=== PATIENT | male | born 1970 | race Caucasian/White ===

== ENCOUNTER 2016-08-07 05:34 | Inpatient (IN) | payer OTHER ==
[~2016-08-07] VITALS: Ht 172.7 cm; Wt 67.5 kg
--- NOTE | 2016-08-07 08:36 | DIAGNOSTIC IMAGING REPORT ---
PROCEDURE: CT ABD/PELVIS WITH CONTRAST CLINICAL INDICATION: Right lower quadrant pain x 3 weeks. Initial encounter. TECHNIQUE: 125 ml of Isovue 300 were injected intravenously and axial images were obtained of the entire abdomen and pelvis with sagittal and coronal reformations. COMPARISON: None. FINDINGS: ABDOMEN: Wall thickening and mild distention of the entire colon. There is some wall thickening of the proximal jejunum. Varices are present. Normal terminal ileum. Lung base are clear. Heart size is normal. Two calcified gallstones (1 cm). Liver, pancreas, spleen, adrenal glands and kidneys are normal. Mild atherosclerosis of the aorta. PELVIS: Prominent appendix measures 8 mm in diameter, without adjacent inflammatory changes, with tiny amount of fluid adjacent to the tip. Mildly enlarged prostate (4.5 cm). Mild degenerative changes of the spine. IMPRESSION: 1. Moderate wall thickening of the entire colon with mild distention and normal terminal ileum. Consider ulcerative colitis, Crohn's, colitis ( infection), irritable bowel syndrome. 2. Varices 3. Cholelithiasis 4. Prominent appendix without adjacent inflammatory changes but with a small amount of free fluid adjacent to the tip. Findings are equivocal for acute appendicitis. Correlate clinically. Recommend surgical consultation. All CT scans at this facility use dose modulation, iterative reconstruction, and/or weight-based dosing when appropriate to reduce radiation dose to as low as reasonably achievable.
--- NOTE | 2016-08-07 08:40 | ED CLINICAL REPORT ---
Clinical Report - Physicians/Mid Levels [facility] [address] [place] [address] 08/07/2016 5:37 Patient: LEONCIO GRAYSON Arrived- By ambulance. Historian- patient. HISTORY OF PRESENT ILLNESS Chief Complaint: ABDOMINAL PAIN. At its maximum, severity described as moderate. When seen in the E.D., severity described as moderate. It is described as sharp. No radiation. It is described as generalized in location. This started about 3 weeks and is still present. It was gradual in onset and has been constant but is not gone now. The patient has had nausea and vomiting. No loss of appetite. He has had moderate diarrhea. It has been bloody. No additional abdominal pain. No recent travel. Similar symptoms previously: None. Recent medical care: The patient was seen recently in the emergency department (reports going to [facility] in [place]. States that he has been unable to follow up with gastroenterology. Patient reports that he missed his appointment. Patient states that he should've followed up however did not.). REVIEW OF SYSTEMS No constipation, hematemesis, fever or headache. He has had skin rash. All systems otherwise negative, except as recorded above. PAST HISTORY See nurses notes. SOCIAL HISTORY Never smoker. No alcohol use or drug use. No recent travel. Is a local resident. FAMILY HISTORY (No known family history of inflammatory bowel disease). ADDITIONAL NOTES The nursing notes have been reviewed. PHYSICAL EXAM Vital Signs: 08/07/2016 05:38 BP: 106/61. HR: 85. RR: 20. O2 saturation: 99%. Temp: 98.4 F. Pain level now: 7/10. Blood pressure normal. Oxygen saturation normal. Appearance: Alert. Oriented X3. No acute distress. Eyes: Pupils equal, round and reactive to light. Eyes normal inspection. No pale conjunctivae. ENT: Ears normal. Nose normal. Pharynx normal. Neck: Normal inspection. Neck supple. CVS: Normal heart rate and rhythm. Heart sounds normal. Pulses normal. Respiratory: No respiratory distress. Breath sounds normal. Chest nontender. No rales, rhonchi or wheezes. Abdomen: Soft. Mild tenderness diffusely. (hyperactive bowel sounds.). Rectal: Strongly heme-positive stool; blood present in the stool; stools are maroon colored; hemoccult senior quality assurance specialist check passed. (POC test reference range: negative). No blood streaks. Skin: Skin warm and dry. Normal skin color. No rash. Normal skin turgor. Extremities: Extremities exhibit normal ROM. No lower extremity edema. Neuro: Oriented X 3. No motor deficit. No sensory deficit. LABS, X-RAYS, AND EKG Abdominal CT: Pancolitis. Gallstones noted. Equivocal finding on appendix. Study type: abdomen and pelvis. Abdominal CT performed with IV contrast. The study was independently viewed by me and interpreted by the radiologist. The study was discussed with the radiologist (Via phone). Laboratory Tests: CBC w Diff: (INÉS: 08/07/2016 05:45) ( [facility] 08/07/2016 08:40) Final results Test Result Flag Units (Reference) WHITE BLOOD COUNT 21.9 H K/uL (4.5-11.5) RED BLOOD COUNT 3.82 L M/uL (4.50-5.90) HEMOGLOBIN 10.4 L gm/dL (13.5-17.5) HEMATOCRIT 31.8 L % (41.0-53.0) MEAN CELL VOLUME 83 fL (80-100) MEAN CORPUSCULAR HGB 27 pg (26-34) MEAN CORPUSCULAR HGB CONC 33 g/dL (31-37) RED CELL DISTRIBUTION WIDTH 14.7 % (11.6-14.8) PLATELET COUNT 554 H K/uL (150-400) POLY % 33 L % (50-75) BAND % 31 H % (0-8) LYMPH 20 L % (25-40) MONO 10 % (3-14) EOSINOPHIL % 3 % (0-4) BASOPHIL % 1 % (0-2) METAMYELOCYTE % 2 H % (0-1) MYELOCYTE 0 % (0-1) OTHER CELL TYPE 0 HYPOCHROMIA 1+ ANISOCYTOSIS 1+ PT with INR: (INÉS: 08/07/2016 06:44) ( [facility] 08/07/2016 07:03) Final results Test Result Flag Units (Reference) INR 0.9 (0.8-1.2) Low Intensity Therapy: INR 1.5-2.0 PT range 18.5-23.1Mod.Intensity Therapy: INR 2.0-3.0 PT range 23.1-31.5High Intensity Therapy: INR 2.5-3.5 PT range 27.4-35.5High Intensity Therapy 2: INR 3.0-4.0 PT range 31.5-39.3 APTT 33 SECONDS (24-34) CMP: (INÉS: 08/07/2016 05:45) ( MsgRcvd 08/07/2016 06:59) Final results Test Result Flag Units (Reference) GLUCOSE 89 mg/dL (70-110) BUN 11 mg/dL (7-18) CREATININE 0.9 mg/dL (0.6-1.3) Estimated GFR >60 mL/min Estimated GFR- >60 mL/min Note: Persistent reduction over 3 months in eGFR<60 mL/min/1.73 m2 defines CKD. Patients with eGFR values>=60 mL/min/1.73 m2 may also have CKD if evidence ofpersistent proteinuria. Additional information may be foundat [email or web address]. SODIUM 137 mmol/L (136-145) POTASSIUM 4.8 mmol/L (3.5-5.1) CHLORIDE 102 mmol/L (98-107) CARBON DIOXIDE 29 mmol/L (21-32) CALCIUM 7.9 L mg/dL (8.5-10.1) TOTAL PROTEIN 5.6 L g/dL (6.4-8.2) ALBUMIN 1.8 L g/dL (3.3-5.0) BILIRUBIN, TOTAL 0.2 mg/dL (0.0-1.0) ALKALINE PHOSPHATASE 76 U/L (46-116) AST (SGOT) 28 U/L (15-37) ALT (SGPT) 17 U/L (12-78) LIPASE 270 U/L (73-393) AMYLASE 48 U/L (25-115) . PROGRESS AND PROCEDURES Course of Care: the patient is a pleasant 46-year-old male (past medical history presenting for evaluation of generalized abdominal pain and bloody diarrhea. Patient reports a recent antibiotic use or travel. Patient reports no history of C. difficile. At this time differential diagnosis includes lower gastrointestinal bleeding, diverticulosis, infectious diarrhea, or colitis. Patient is agreeable to treatment and plan. Patient to be thyroid laboratory studies for further workup of the patient's hemoglobin status as well as anymetabolic derangements that could result from his illness. Workup shows patient does significant elevation in white blood cell count at 21.9. Hemoglobin is at 10.4.. Patient's previous records at [facility] and note the patient's hemoglobin to be 13. Patient has approximately 3 points lower today on his hemoglobin as compared to the beginning of this month. Patient's creatinine is noted to be within normal limits. Patient will be evaluated CT scan with contrast. Patient is agreeable to the treatment and plan. Workup is noted to be significant for pancolitis and equivocal finding on the patient's and appendix. Positive findings of cholelithiasis without cholecystitis. Because of the patient's sinus symptoms, infectious colitis is likely. Antibiotics have been ordered. Will discuss case with hospitalist and general surgeon for admission and workup/monitoring of the colitis. Discussed with the other providers the patient's case. They're happy to consult on the case and admit the patient. The patient be admitted for further workup and management. Discussed with patient has workup, diagnosis, And plan of care. QUESTIONS have been answered. patient expressed understanding of these instructions and was agreeable to that. Consult obtained from surgery. CLINICAL IMPRESSION Pancolitis, acute lower GI bleed, acute acute blood loss anemia generalized abdominal pain, acute leukocytosis, acute. (Electronically signed by Dominic Schafer Dr. 08/07/2016 9:54)
--- NOTE | 2016-08-07 08:40 | ED ORDER SUMMARY ---
..... Patient: LEONCIO GRASYON OrderSheet [facility] VisitID: [id number] [place] [address] 46y, M Registration Date/Time: 08/07/2016 ORDER SHEET Weight: 65.7 kg (stated) Allergies: Penicillin GENERAL ORDERS: CBC w Diff Urgent (06:03 08/07/2016 HSoule per protocol) (Ack 6:03 HSoule) (7:02 TLewis R.N.) CMP Urgent (06:08/07/2016 HSoule per protocol) (Ack 6:03 HSoule) (7:02 TLewis R.N.) Amylase Urgent (06:08/07/2016 HSoule per protocol) (Ack 6:03 HSoule) (7:02 TLewis R.N.) Lipase Urgent (06:08/07/2016 HSoule per protocol) (Ack 6:03 HSoule) (7:02 TLewis R.N.) Type & Screen Urgent (06:28 08/07/2016 Gabriela Daniels) (Ack 6:38 ALawrence ER Tech1) (7:08 ALawrence ER Tech1) PT with INR Urgent (06:28 08/07/2016 Gabriela Daniels) (Ack 6:38 ALawrence ER Tech1) (7:02 TLewis R.N.) PTT Urgent (06:08/07/2016 Gabriela Daniels) (Ack 6:38 ALawrence ER Tech1) (7:02 TLewis R.N.) Stool for C. Difficile Urgent (06:28 08/07/2016 Gabriela Daniels) (Ack 6:38 ALawrence ER Tech1) (9:39 JSanders R.N.) Stool WBC Urgent (06:08/07/2016 Gabriela Daniels) (Ack 6:38 ALawrence ER Tech1) (9:39 JSanders R.N.) CT Abd/Pel w Cont (No) (GFR > 60) Urgent (07:11 08/07/2016 Gabriela Daniels) (7:38 Viridiana R.N.) Type & Screen Urgent (09:05 08/07/2016 Gabriela Daniels) (Ack 9:07 RKaruga) (9:07 RKaruga) MEDICATION ORDERS: IV FLUIDS: IV Saline Lock (06:03 08/07/2016 HSoule per protocol) (6:03 HSoule) Morphine IV 4 mg (HIGH ALERT MEDICATION, NOW) (06:53 08/07/2016 Gabriela Daniels) (Ack 6:54 HSoule) (7:05 HSoule) IV NS : initial bolus 1000 mL (1000 mL/hr), then none - for X1 (NOW) (07:18 08/07/2016 Gabriela Daniels) (Ack 7:38 Viridiana R.NMarianna) (7:45 Natacha R.NMarianna) IV NS : initial bolus 1000 mL (1000 mL/hr), then none - for X1 (NOW) (09:44 08/07/2016 Gabriela Daniels) (9:59 Natacha R.N.) ORDER SHEET NOTES: [Electronically signed by Dominic Schafer Dr. (09:54 08/07/2016)] [Electronically signed by Corine Louis R.N. (11:52 08/07/2016)] [Electronically locked/signed by Corine Louis R.N. (11:52 08/07/2016)]
--- NOTE | 2016-08-07 08:40 | ED NURSING NOTES ---
Clinical Report - Nurses [facility] [address] [place] [address] 08/07/2016 5:37 Patient: LEONCIO GRAYSON TRIAGE Triage time 05:38 Aug 07 2016. Acuity: LEVEL 3. Chief Complaint: ABDOMINAL PAIN and DIARRHEA and BLOOD IN STOOLS. SEPSIS SCREEN: Sepsis Screen: negative. Negative (no infection suspected/documented). --05:41 Rosanna Bolivar 05:38 08/07/16. BP: 106/61. HR: 85. RR: 20. O2 saturation: 99% on room air. Temp: 98.4 F (oral). Pain level now: 11/30. --05:41 Rosanna Bolivar. Weight: 65.7 kg stated. Height/Length: 68 inches Per Patient. BMI: 22. --05:39 Rosanna Bolivar. Medications None. --05:39 Rosanna Bolivar. Medication/allergy information source: the patient. --05:41 Rosanna Bolivar. Allergies Penicillin. --05:39 Rosanna Bolivar. History Arrived by EMS. Onset. (3 weeks). ( Patient reports that he has been having abdominal pain and bloody stool for three weeks. He went to [facility] and was referred to a follow up with GI. He was not able to make his appointment. He reports increased pain tonight and worsening blood in the stool. Patient reports worsening pain prior to a BM.). PAST MEDICAL HX: Immunizations: up-to-date. SOCIAL HX: Heavy tobacco smoker (cigarette)- less than 1 pack per day. No alcohol use. No recent travel. No infectious disease exposure. No known contact with a sick individual. ABUSE ASSESSMENT: No report of abuse. FALL RISK ASSESSMENT: Fall risk assessment completed. No fall risk identified. NUTRITIONAL RISK ASSESSMENT: The nutritional risk assessment revealed no deficiencies. FUNCTIONAL ASSESSMENT: Functional assessment: no impairments noted. LEARNING NEEDS ASSESSMENT: The learning needs assessment revealed no barriers. SKIN INTEGRITY ASSESSMENT: Skin integrity risk assessment completed. No skin integrity risk identified. --05:41 Rosanna Bolivar Treatment SUMMER LAW ASSOCIATE: See EMS report. BP: 126 / 76. HR: 96. RR: 20. O2 saturation: 98 room air. --05:42 Rosanna Bolivar. PROBLEMS: no known problems. ADDITIONAL SURGERIES: Tonsillectomy. --05:40 Rosanna Bolivar. Interventions ID band on patient. To treatment room. --05:41 Rosanna Bolivar. PHYSICAL ASSESSMENT 05:42 08/07/16. To room via stretcher. Patient gowned. GENERAL / NEURO / PSYCH: Alert. Oriented X 4. Appears in pain. HEENT: Mucous membranes are pink. RESPIRATORY: Respirations not labored. CVS: Normal sinus rhythm noted. GI / : Abdominal tenderness in the lower abdomen. SKIN: Skin is warm and dry. --05:42 Rosanna Bolivar. NURSING PROGRESS NOTES Pulse oximeter and NIBP monitor placed on patient; monitor alarms on. Patient gowned. Head of bed elevated. Warming measures: blanket applied. Reassurance given to the patient. Two patient identifiers checked. Call light placed in reach. Side rails up x 1. Bed placed in lowest position. Brakes of bed on. Patient ready for evaluation- chart flagged and ED physician notified. --05:43 Rosanna Bolivar 05:48 08/07/2016 Site #1 started via IV in the right antecubital space with an 20g angiocath, with aseptic technique and good blood return; two attempts. Blood drawn: rainbow set. Labeled in the presence of the patient and sent to the lab. Saline lock flushed with 10 mL saline. --05:48 Gustavo Felipe R.N. 06:20 08/07/16. BP: 100/50. HR: 97. RR: 20. O2 saturation: 96% on room air. Pain level now: 12/31. --06:21 Rosanna Bolivar 06:45. Checked patient name and birthdate: patient confirmed. Blood samples drawn from the left forearm by tech per protocol ; labeled in presence of the patient and sent to lab: red, green and blue top. (Patient blood banded). --06:53 McQuoid, Hanna, ER Tech1 07:05 08/07/2016 Morphine IVP 4 mg given over 1 minute(s) via site #1. Allergies verified, confirmed 5 rights and sedative warning given to the patient. IV patency established. IV site checked: no pain, redness, or swelling. IV flushed thoroughly pre- and post-medication administration. IVP given by RN. --07:05 Rosanna Bolivar 07:05 08/07/16. BP: 109/62. HR: 87. RR: 20. O2 saturation: 95% on room air. Pain level now: 11/30. --07:10 Rosanna oBlivar 07:13 08/07/16. Care transferred and report given (Isauro FORRESTER). --07:13 Maria Dolores Bolivarh Patient transported to [place] by stretcher with tech. (07:33 Aug 07 2016). --07:33 Corine Louis R.N. 07:45 08/07/2016 Started bag #1 1000 mL IV Fluids IV NS (Saline); at 1000 mL/hr over 1 hour(s) via site #1 via dial-a-flow. Allergies verified and confirmed 5 rights. IV patency established. IV site checked: no pain, redness, or swelling. IV flushed thoroughly pre- and post-medication administration. --07:45 Corine Louis R.N. Patient returned from CT by stretcher with tech. (07:40 Aug 07 2016). --07:48 Corine Louis R.N. 07:45 08/07/16. BP: 103/52 (regular adult cuff) taken on the left arm, while lying. HR: 93 (regular). RR: 16. O2 saturation: 98% on room air. Temp: 98.5 F (oral). Pain level now: 10/31. Additional comments: RUQ intermittent pain. --07:48 Corine Louis R.N. 09:20 08/07/16. BP: 109/54 (regular adult cuff) taken on the left arm, while lying. HR: 101. RR: 16. O2 saturation: 96% on room air. Temp: 98.2 F (oral). Pain level now: 08/31. --09:22 Corine Louis R.N. 09:22 08/07/2016 Morphine IVP Response: no adverse reaction pain is improving. Symptoms have improved the patient feels better. --09:22 Corine Louis R.N. 09:22 08/07/16. --09:22 Corine Louis R.N. 09:25 08/07/16. ( Patient up to use the restroom, he will try providing a stool sample). --09:25 Corine Louis R.N. 09:39 08/07/2016 IV Fluids IV NS Discontinued: bag #1 completed. Total amount infused: 1000 mL. IV patency established. IV site checked: no pain, redness, or swelling. IV flushed thoroughly. --09:39 Corine Louis R.N. 09:59 08/07/2016 Started bag #1 1000 mL IV Fluids IV NS (Saline); at 1000 mL/hr over 1 hour(s) via site #1 via dial-a-flow. Allergies verified and confirmed 5 rights. IV patency established. IV site checked: no pain, redness, or swelling. IV flushed thoroughly pre- and post-medication administration. --09:59 Corine Louis R.N. 10:47 08/07/16. Care transferred and report given ([facility]). --10:47 Corine Louis R.N. 10:49 08/07/16. ( Hospitalist in with patient now). --10:49 Corine Louis R.N. 11:04 08/07/16. ( Patient ready for transport to floor). --11:04 Corine Louis R.N. 11:03 08/07/16. BP: 111/67 (regular adult cuff) taken on the left arm, while lying. HR: 86. RR: 16 (regular). O2 saturation: 97% on room air. Temp: 98.3 F (oral). Pain level now: 10/31. --11:04 Corine Louis R.N. late entry - 11:00. --11:48 Corine Louis R.N. 11:47 08/07/16. BP: 98/56 (regular adult cuff) taken on the left arm, while lying. HR: 76. RR: 16 (regular). O2 saturation: 98% on room air. Temp: 98.2 F (oral). Pain level now: 12/31. --11:48 Corine Louis R.N. DISPOSITION / DISCHARGE 11:34 08/07/2016 Site #[address] upon transfer; patent, no pain and no signs of infection or infiltration. Good blood return present. Flushed with 10 mL saline; flushes easily. --11:49 Corine Louis R.N. 11:35 08/07/2016 IV Fluids IV NS Discontinued: bag #2 completed upon transfer. Total amount infused: 1000 mL. IV patency established. IV site checked: no pain, redness, or swelling. IV flushed thoroughly. --11:50 Corine Louis R.N. 11:45 08/07/16. Departure time: 11:45 Aug 07 2016. Condition at departure: unchanged. Admitted to Acute Care (1145). Transported via stretcher by transport team. Report was given to a nurse. Patient's personal items include, clothes. --11:51 Corine Louis R.N. 11:48 08/07/16. BP: 107/57 (regular adult cuff) taken on the left arm, while lying. HR: 80. RR: 16. O2 saturation: 96% on room air. Temp: 98.4 F (oral). Pain level now: 12/31. --11:51 Corine Louis R.N. Locked/Released at 08/07/2016 11:52 by Corine Louis R.N.
--- NOTE | 2016-08-07 08:40 | ED ORDER SUMMARY ---
..... Patient: LEONCIO GRAYSON OrderSheet [facility] VisitID: [id number] [place] [address] 46y, M Registration Date/Time: 08/07/2016 ORDER SHEET Weight: 65.7 kg (stated) Allergies: Penicillin GENERAL ORDERS: CBC w Diff Urgent (06:03 08/07/2016 HSoule per protocol) (Ack 6:03 HSoule) (7:02 TLewis R.N.) CMP Urgent (06:08/07/2016 HSoule per protocol) (Ack 6:03 HSoule) (7:02 TLewis R.N.) Amylase Urgent (06:08/07/2016 HSoule per protocol) (Ack 6:03 HSoule) (7:02 TLewis R.N.) Lipase Urgent (06:08/07/2016 HSoule per protocol) (Ack 6:03 HSoule) (7:02 TLewis R.N.) Type & Screen Urgent (06:28 08/07/2016 Gabriela Daniels) (Ack 6:38 ALawrence ER Tech1) (7:08 ALawrence ER Tech1) PT with INR Urgent (06:28 08/07/2016 Gabriela Daniels) (Ack 6:38 ALawrence ER Tech1) (7:02 TLewis R.N.) PTT Urgent (06:08/07/2016 Gabriela Daniels) (Ack 6:38 ALawrence ER Tech1) (7:02 TLewis R.N.) Stool for C. Difficile Urgent (06:28 08/07/2016 Gabriela Daniels) (Ack 6:38 ALawrence ER Tech1) (9:39 JSanders R.N.) Stool WBC Urgent (06:08/07/2016 Gabriela Daniels) (Ack 6:38 ALawrence ER Tech1) (9:39 JSanders R.N.) CT Abd/Pel w Cont (No) (GFR > 60) Urgent (07:11 08/07/2016 Gabriela Daniels) (7:38 Viridiana R.N.) Type & Screen Urgent (09:05 08/07/2016 Gabriela Daniels) (Ack 9:07 RKaruga) (9:07 RKaruga) MEDICATION ORDERS: IV FLUIDS: IV Saline Lock (06:03 08/07/2016 HSoule per protocol) (6:03 HSoule) Morphine IV 4 mg (HIGH ALERT MEDICATION, NOW) (06:53 08/07/2016 Gabriela Daniels) (Ack 6:54 HSoule) (7:05 HSoule) IV NS : initial bolus 1000 mL (1000 mL/hr), then none - for X1 (NOW) (07:18 08/07/2016 Gabriela Daniels) (Ack 7:38 Viridiana R.NMarianna) (7:45 Natacha R.NMarianna) IV NS : initial bolus 1000 mL (1000 mL/hr), then none - for X1 (NOW) (09:44 08/07/2016 Gabriela Daniels) (9:59 Natacha R.N.) ORDER SHEET NOTES: [Electronically signed by Dominic Schafer Dr. (09:54 08/07/2016)] [Electronically signed by Corine Louis R.N. (11:52 08/07/2016)] [Electronically locked/signed by Corine Louis R.N. (11:52 08/07/2016)]
--- NOTE | 2016-08-07 08:40 | ED NURSING NOTES ---
Clinical Report - Nurses [facility] [address] [place] [address] 08/07/2016 5:37 Patient: LEONCIO GRAYSON TRIAGE Triage time 05:38 Aug 07 2016. Acuity: LEVEL 3. Chief Complaint: ABDOMINAL PAIN and DIARRHEA and BLOOD IN STOOLS. SEPSIS SCREEN: Sepsis Screen: negative. Negative (no infection suspected/documented). --05:41 Rosanna Bolivar 05:38 08/07/16. BP: 106/61. HR: 85. RR: 20. O2 saturation: 99% on room air. Temp: 98.4 F (oral). Pain level now: 11/30. --05:41 Rosanna Bolivar. Weight: 65.7 kg stated. Height/Length: 68 inches Per Patient. BMI: 22. --05:39 Rosanna Bolivar. Medications None. --05:39 Rosanna Bolivar. Medication/allergy information source: the patient. --05:41 Rosanna Bolivar. Allergies Penicillin. --05:39 Rosanna Bolivar. History Arrived by EMS. Onset. (3 weeks). ( Patient reports that he has been having abdominal pain and bloody stool for three weeks. He went to [facility] and was referred to a follow up with GI. He was not able to make his appointment. He reports increased pain tonight and worsening blood in the stool. Patient reports worsening pain prior to a BM.). PAST MEDICAL HX: Immunizations: up-to-date. SOCIAL HX: Heavy tobacco smoker (cigarette)- less than 1 pack per day. No alcohol use. No recent travel. No infectious disease exposure. No known contact with a sick individual. ABUSE ASSESSMENT: No report of abuse. FALL RISK ASSESSMENT: Fall risk assessment completed. No fall risk identified. NUTRITIONAL RISK ASSESSMENT: The nutritional risk assessment revealed no deficiencies. FUNCTIONAL ASSESSMENT: Functional assessment: no impairments noted. LEARNING NEEDS ASSESSMENT: The learning needs assessment revealed no barriers. SKIN INTEGRITY ASSESSMENT: Skin integrity risk assessment completed. No skin integrity risk identified. --05:41 Rosanna Bolivar Treatment CLINICAL TRIALS SPECIALIST: See EMS report. BP: 126 / 76. HR: 96. RR: 20. O2 saturation: 98 room air. --05:42 Rosanna Bolivar. PROBLEMS: no known problems. ADDITIONAL SURGERIES: Tonsillectomy. --05:40 Rosanna Bolivar. Interventions ID band on patient. To treatment room. --05:41 Rosanna Bolivar. PHYSICAL ASSESSMENT 05:42 08/07/16. To room via stretcher. Patient gowned. GENERAL / NEURO / PSYCH: Alert. Oriented X 4. Appears in pain. HEENT: Mucous membranes are pink. RESPIRATORY: Respirations not labored. CVS: Normal sinus rhythm noted. GI / : Abdominal tenderness in the lower abdomen. SKIN: Skin is warm and dry. --05:42 Rosanna Bolivar. NURSING PROGRESS NOTES Pulse oximeter and NIBP monitor placed on patient; monitor alarms on. Patient gowned. Head of bed elevated. Warming measures: blanket applied. Reassurance given to the patient. Two patient identifiers checked. Call light placed in reach. Side rails up x 1. Bed placed in lowest position. Brakes of bed on. Patient ready for evaluation- chart flagged and ED physician notified. --05:43 Rosanna Bolivar 05:48 08/07/2016 Site #1 started via IV in the right antecubital space with an 20g angiocath, with aseptic technique and good blood return; two attempts. Blood drawn: rainbow set. Labeled in the presence of the patient and sent to the lab. Saline lock flushed with 10 mL saline. --05:48 Gustavo Felipe R.N. 06:20 08/07/16. BP: 100/50. HR: 97. RR: 20. O2 saturation: 96% on room air. Pain level now: 12/31. --06:21 Rosanna Bolivar 06:45. Checked patient name and birthdate: patient confirmed. Blood samples drawn from the left forearm by tech per protocol ; labeled in presence of the patient and sent to lab: red, green and blue top. (Patient blood banded). --06:53 McQuoid, Hanna, ER Tech1 07:05 08/07/2016 Morphine IVP 4 mg given over 1 minute(s) via site #1. Allergies verified, confirmed 5 rights and sedative warning given to the patient. IV patency established. IV site checked: no pain, redness, or swelling. IV flushed thoroughly pre- and post-medication administration. IVP given by RN. --07:05 Rosanna Bolivar 07:05 08/07/16. BP: 109/62. HR: 87. RR: 20. O2 saturation: 95% on room air. Pain level now: 11/30. --07:10 Rosanna Bolivar 07:13 08/07/16. Care transferred and report given (Isauro FORRESTER). --07:13 Maria Dolores Bolivarh Patient transported to [place] by stretcher with tech. (07:33 Aug 07 2016). --07:33 Corine Louis R.N. 07:45 08/07/2016 Started bag #1 1000 mL IV Fluids IV NS (Saline); at 1000 mL/hr over 1 hour(s) via site #1 via dial-a-flow. Allergies verified and confirmed 5 rights. IV patency established. IV site checked: no pain, redness, or swelling. IV flushed thoroughly pre- and post-medication administration. --07:45 Corine Louis R.N. Patient returned from CT by stretcher with tech. (07:40 Aug 07 2016). --07:48 Corine Louis R.N. 07:45 08/07/16. BP: 103/52 (regular adult cuff) taken on the left arm, while lying. HR: 93 (regular). RR: 16. O2 saturation: 98% on room air. Temp: 98.5 F (oral). Pain level now: 10/31. Additional comments: RUQ intermittent pain. --07:48 Corine Louis R.N. 09:20 08/07/16. BP: 109/54 (regular adult cuff) taken on the left arm, while lying. HR: 101. RR: 16. O2 saturation: 96% on room air. Temp: 98.2 F (oral). Pain level now: 08/31. --09:22 Corine Louis R.N. 09:22 08/07/2016 Morphine IVP Response: no adverse reaction pain is improving. Symptoms have improved the patient feels better. --09:22 Corine Louis R.N. 09:22 08/07/16. --09:22 Corine Louis R.N. 09:25 08/07/16. ( Patient up to use the restroom, he will try providing a stool sample). --09:25 Corine Louis R.N. 09:39 08/07/2016 IV Fluids IV NS Discontinued: bag #1 completed. Total amount infused: 1000 mL. IV patency established. IV site checked: no pain, redness, or swelling. IV flushed thoroughly. --09:39 Corine Louis R.N. 09:59 08/07/2016 Started bag #1 1000 mL IV Fluids IV NS (Saline); at 1000 mL/hr over 1 hour(s) via site #1 via dial-a-flow. Allergies verified and confirmed 5 rights. IV patency established. IV site checked: no pain, redness, or swelling. IV flushed thoroughly pre- and post-medication administration. --09:59 Corine Louis R.N. 10:47 08/07/16. Care transferred and report given ([facility]). --10:47 Corine Louis R.N. 10:49 08/07/16. ( Hospitalist in with patient now). --10:49 Corine Louis R.N. 11:04 08/07/16. ( Patient ready for transport to floor). --11:04 Corine Louis R.N. 11:03 08/07/16. BP: 111/67 (regular adult cuff) taken on the left arm, while lying. HR: 86. RR: 16 (regular). O2 saturation: 97% on room air. Temp: 98.3 F (oral). Pain level now: 10/31. --11:04 Corine Lousi R.N. late entry - 11:00. --11:48 Corine Louis R.N. 11:47 08/07/16. BP: 98/56 (regular adult cuff) taken on the left arm, while lying. HR: 76. RR: 16 (regular). O2 saturation: 98% on room air. Temp: 98.2 F (oral). Pain level now: 12/31. --11:48 Corine Louis R.N. DISPOSITION / DISCHARGE 11:34 08/07/2016 Site #[address] upon transfer; patent, no pain and no signs of infection or infiltration. Good blood return present. Flushed with 10 mL saline; flushes easily. --11:49 Corine Louis R.N. 11:35 08/07/2016 IV Fluids IV NS Discontinued: bag #2 completed upon transfer. Total amount infused: 1000 mL. IV patency established. IV site checked: no pain, redness, or swelling. IV flushed thoroughly. --11:50 Corine Louis R.N. 11:45 08/07/16. Departure time: 11:45 Aug 07 2016. Condition at departure: unchanged. Admitted to Acute Care (1145). Transported via stretcher by transport team. Report was given to a nurse. Patient's personal items include, clothes. --11:51 Corine Louis R.N. 11:48 08/07/16. BP: 107/57 (regular adult cuff) taken on the left arm, while lying. HR: 80. RR: 16. O2 saturation: 96% on room air. Temp: 98.4 F (oral). Pain level now: 12/31. --11:51 Corine Louis R.N. Locked/Released at 08/07/2016 11:52 by Corine Louis R.N.
--- NOTE | 2016-08-07 11:52 | ED DISCHARGE INSTRUCTIONS ---
Patient: LEONCIO GRAYSON General Instructions [facility] VisitID: [id number] [address] [place] [address] 46y, M Registration Date/Time: 08/07/2016 Pancolitis, acute lower GI bleed, acute acute blood loss anemia generalized abdominal pain, acute leukocytosis, acute. (Electronically signed by Dominic Schafer Dr. 08/07/2016 9:54)
--- NOTE | 2016-08-07 11:52 | ED DISCHARGE INSTRUCTIONS ---
Patient: LEONCIO GRAYSON General Instructions [facility] VisitID: [id number] [address] [place] [address] 46y, M Registration Date/Time: 08/07/2016 Pancolitis, acute lower GI bleed, acute acute blood loss anemia generalized abdominal pain, acute leukocytosis, acute. (Electronically signed by Dominic Schafer Dr. 08/07/2016 9:54)
--- NOTE | 2016-08-07 11:52 | ED MED RECONCILIATION SUMMARY ---
Patient: LEONCIO GRAYSON Medication Reconciliation Report [facility] VisitID: [id number] [address] [place] [address] 46y, M Registration Date/Time: 08/07/2016 Weight: 65.7 kg Height/Length: 68 in. BMI: 22.0 ALLERGIES: Penicillin The patient's Home Medications are listed below: NONE. The source(s) of the original Home Medication information: patient The following Medications were given to the patient in the Emergency Department: Morphine [IVP] IVP 4 mg, administered: 08/07/2016 7:05:00 AM IV NS IV Fluids bolus 0, then 1000 mL/hr, administered: 08/07/2016 7:45:00 AM IV NS IV Fluids bolus 0, then 1000 mL/hr, administered: 08/07/2016 9:59:00 AM The following Medications were prescribed to the patient: None.
--- NOTE | 2016-08-07 11:52 | ED MAR SUMMARY ---
..... Medication Administration Record [facility] [address] [place] [address] Patient: LEONCIO GRAYSON Visit ID: [id number] 46y, M Weight: 65.7 kg Height/Length: 68 in BMI: 22 ALLERGIES: Penicillin Given 07:05 08/07/2016 Rosanna Bolivar, Medication Administered: MORPHINE [IVP], Dose: 4 mg IVP over 1 minute(s), Site: #1 right AC. Medication Ordered: Morphine IV 4 mg (HIGH ALERT MEDICATION, NOW). Start 07:45 08/07/2016 Corine Louis R.N., Stop 09:39 08/07/2016 Corine Louis R.N. Medication Administered: IV NS (SALINE), Dose: IV Fluids over 1 hour(s), Rate: 1000 mL/hr, Dispensed: 1000 mL bag, Site: #1 right AC. Medication Ordered: IV NS : initial bolus 1000 mL (1000 mL/hr), then none - for X1 (NOW). Start 09:59 08/07/2016 Corine Louis RPancho., Stop 11:35 08/07/2016 Corine Louis R.N. Medication Administered: IV NS (SALINE), Dose: IV Fluids over 1 hour(s), Rate: 1000 mL/hr, Dispensed: 1000 mL bag, Site: #1 right AC. Medication Ordered: IV NS : initial bolus 1000 mL (1000 mL/hr), then none - for X1 (NOW).
--- NOTE | 2016-08-07 11:52 | ED MAR SUMMARY ---
..... Medication Administration Record [facility] [address] [place] [address] Patient: LEONCIO GRAYSON Visit ID: [id number] 46y, M Weight: 65.7 kg Height/Length: 68 in BMI: 22 ALLERGIES: Penicillin Given 07:05 08/07/2016 Rosanna Bolivar, Medication Administered: MORPHINE [IVP], Dose: 4 mg IVP over 1 minute(s), Site: #1 right AC. Medication Ordered: Morphine IV 4 mg (HIGH ALERT MEDICATION, NOW). Start 07:45 08/07/2016 Corine Louis R.N., Stop 09:39 08/07/2016 Corine Louis R.N. Medication Administered: IV NS (SALINE), Dose: IV Fluids over 1 hour(s), Rate: 1000 mL/hr, Dispensed: 1000 mL bag, Site: #1 right AC. Medication Ordered: IV NS : initial bolus 1000 mL (1000 mL/hr), then none - for X1 (NOW). Start 09:59 08/07/2016 Corine Louis RPancho., Stop 11:35 08/07/2016 Corine Louis R.N. Medication Administered: IV NS (SALINE), Dose: IV Fluids over 1 hour(s), Rate: 1000 mL/hr, Dispensed: 1000 mL bag, Site: #1 right AC. Medication Ordered: IV NS : initial bolus 1000 mL (1000 mL/hr), then none - for X1 (NOW).
--- NOTE | 2016-08-07 11:52 | ED MED RECONCILIATION SUMMARY ---
Patient: LEONCIO GRAYSON Medication Reconciliation Report [facility] VisitID: [id number] [address] [place] [address] 46y, M Registration Date/Time: 08/07/2016 Weight: 65.7 kg Height/Length: 68 in. BMI: 22.0 ALLERGIES: Penicillin The patient's Home Medications are listed below: NONE. The source(s) of the original Home Medication information: patient The following Medications were given to the patient in the Emergency Department: Morphine [IVP] IVP 4 mg, administered: 08/07/2016 7:05:00 AM IV NS IV Fluids bolus 0, then 1000 mL/hr, administered: 08/07/2016 7:45:00 AM IV NS IV Fluids bolus 0, then 1000 mL/hr, administered: 08/07/2016 9:59:00 AM The following Medications were prescribed to the patient: None.
[2016-08-07 12:05] VITALS: BP 102/59
--- NOTE | 2016-08-07 13:36 | HISTORY AND PHYSICAL ---
ADMITTED: 08/07/2016 CHIEF COMPLAINT: 1. Abdominal pain. 2. Bright red blood per rectum. HISTORY OF PRESENT ILLNESS: This is a 46-year-old male admitted to [facility] where he presented to the emergency department with approximately 3- week history of abdominal pain and bright red blood per rectum. The patient states that he has been having anywhere between 4-6 bowel movements per day. He describes them as being very runny and containing blood in the stool and occasional clots in the toilet bowl. The patient also admits to a crampy, colicky abdominal pain primarily in his lower abdomen. He denies any fever or chills, but says that he has night sweats. No prior history of abdominal symptoms like this. The patient denies travel outside the area. Denies drinking contaminated water, i.e., mountain streams or cr. He lives in town and drinks city water. No one else that he is associated with is sick. MEDICAL/SURGICAL HISTORY: Tonsillectomy and adenoidectomy. MEDICATIONS: 1. None. ALLERGIES: 1. PENICILLIN causes him throat swelling. SOCIAL HISTORY: He is single, he has 1 daughter. The patient smokes less than a pack of cigarettes a day, does not drink alcohol, does not use recreational drugs, presently unemployed, in the past has worked as a warehouse. No service. No overseas tours. FAMILY HISTORY: Mother is age 57. Father is age 59, both are in good health. The patient has no natural brothers or sisters. REVIEW OF SYSTEMS: No history of hepatitis, jaundice, rheumatic fever, blood transfusions, heart murmurs requiring antibiotics, bleeding tendencies. The remaining 12-point review of systems is negative. PHYSICAL EXAMINATION: VITAL SIGNS: Blood pressure is 102/59, pulse 82, respirations 20, temperature 98.2. GENERAL: The patient is awake, alert, conversant. Appears to be in mild discomfort. HEENT: Normocephalic, atraumatic. Pupils equal and reactive. No scleral icterus. External auditory canals clear. No nasal septal defect or discharge. Throat is clear, not injected. The patient has considerable amount of dental work in good repair. NECK: Supple. No JVD, carotid bruit or adenopathy. LUNGS: Clear. No rales, rhonchi, or wheezing. O2 saturations 95%. HEART: Regular rhythm, no murmurs. ABDOMEN: Slightly distended, tympanitic. Normoactive bowel sounds. Tender in all quadrants, greater tenderness in the right lower quadrant suprapubic region. No masses appreciable. EXTREMITIES: Full range of motion, active and passively. No pretibial or ankle edema. The patient has 4+ popliteal pulses. SKIN: Warm and dry with no evidence of peripheral cyanosis. NEUROLOGIC: The patient is grossly intact with no focal motor neurologic deficits. LYMPHATICS: No cervical, supraclavicular, axillary, or groin adenopathy. LAB/IMAGING: White count 21.9, hemoglobin and hematocrit 10.4 and 31.8 respectively. Sodium 137, potassium 4.8, chloride 102, CO2 29, BUN 11, creatinine 0.9, glucose 89. Liver function studies are normal. Lipase 270. His total protein and albumin are low at 5.[address] of his abdomen and pelvis showed a prominent appendix without adjacent inflammatory changes, moderate wall thickening of the entire colon. Mild distention. Normal terminal ileum and cholelithiasis. IMPRESSION: 1. Colitis, probably ulcerative colitis. PLAN: Agree with your management at present with the Francia and [facility]. Once his abdomen is a little less tender, would consider colonoscopy. We will follow with you. Discussed with the patient and he understands our plan. All questions have been answered to his satisfaction at this point.
--- NOTE | 2016-08-07 13:36 | History & Physical Report ---
Information Source Information Source: Self Reliability: Good History Chief Complaint abdominal pain and bloody stools History of Present Illness Patient is a 46 year old male presenting with a sudden onset of abdominal pain and bloody stool. Patient had been in his usual state of health when 2 weeks prior he had an episode of bloody stools. Patient describes the stool as diarrhea mixed with blood. Patient went to [facility] was worked up and was asked to follow up with gastroenterology as an out patient. Patient did not follow up and continued to have the same symptoms. Patient returned to home continued to have abdominal pain and bloody diarrhea, however it did slow down to some degree. Patient descirbes the amount of blood enough to coat the toilet bowl. Patient estimates around half a cup of blood amixed with stool every single episode. Patient became worried when his symptoms did not abet and decided to come to the hospital. Patient has never had symptoms like this in the past nor has he had episodes of rectal bleeding in the past as well. Patient does not have a family history of inflammatory bowel disease, food intolerance, history of malignancies, or history or chronic abdominal pain. Patient History 1. Pancolitis 2. Anemia due to blood loss, acute 3. Abdominal pain 4. Leukocytosis Social History Patient is currently unemployed, has worked in a warehouse in the past. Patient lives with a friend currently. Patient does drink or use illicit substances. Patient does smoke cigarettes and average around 1/2 pack a day for the past 28 years. Medications and Allergies Medications Home Medications None Current Medications Sig/Vinicio Start time Last Medication Dose Route Stop Time Status Admin Acetaminophen 650 MG Q6H PRN 08/07 1345 AC PO Ondansetron HCl 4 MG Q6H PRN 08/07 1345 AC IV Sodium Chloride 1,000 ML ASDIRECTED 08/07 1345 AC 08/07 IV 1412 Hydromorphone HCl See Dose Q4H 08/07 1245 CAN Insts (1) IV Hydromorphone HCl 1 MG Q4H PRN 08/07 1245 AC 08/07 IV 1319 Hydromorphone HCl 2 MG Q4H PRN 08/07 1245 AC IV Metronidazole 500 MG Q12HR 08/07 1231 AC 08/07 PO 1411 Ciprofloxacin 500 MG BID 08/07 1230 AC 08/07 PO 1412 Dextrose/Sodium 1,000 ML ASDIRECTED 08/07 1000 AC 08/07 Chloride IV 1232 Dose Instructions: (1)Hydromorphone HCl: 1 - 2 MG Allergies Coded Allergies: Penicillins (Severe, Anaphylaxis 08/07/16) Review of Systems Constitutional Chills, Sweats, Weakness, Malaise. Denies: Fever, Other. Eyes Denies: Pain, Vision Change, Conjunctival Inflammation, Eyelid Inflammation, Redness, Other. ENT Denies: Ear Pain, Ear Discharge, Nose Pain, Nasal Discharge, Nasal Congestion, Mouth Pain, Mouth Swelling, Throat Pain, Throat Swelling, Other. Respiratory Denies: Cough, Dry, SOB w/exertion, Wheezing, Hemoptysis, Pleuritic Pain, Sputum , Other. Cardiovascular Denies: Chest Pain, Palpitations, Orthopnea, PND, Edema, Light-headedness, Other. Gastrointestinal Nausea, Abdominal Pain, Diarrhea. Denies: Vomiting, Constipation, Melena, Hematochezia. Genitourinary Denies: Dysuria, Frequency, Incontinence, Hematuria, Retention, Other. Musculoskeletal Denies: Neck Pain, Shoulder Pain, Arm Pain, Back Pain, Hand Pain, Leg Pain, Foot Pain, Other. Skin Denies: Rash, Lesions, Jaundice, Bruising, Other. Neurological Denies: Weakness, Numbness, Incoordination, Change in speech, Confusion, Seizures, Other. Physical Exam Vital Signs / I&Os Vital Signs Date Time Temp Pulse Resp B/P Pulse O2 O2 Flow FiO2 Ox Delivery Rate 08/07 1428 98.1 75 20 92/57 94 Room Air 08/07 1205 98.2 82 20 102/59 95 Tent 0.0 General Appearance Alert, Oriented X3, Cooperative, Mild distress HEENT PERRLA, Moist mucous membranes Lungs Clear to auscultation, Normal air movement Neck Supple, No JVD, No masses, No thyromegaly, 2+ carotid pulse wo bruit Cardiovascular Regular rate and rhythm, Normal S1 and S2, No murmurs, gallops, rubs Abdomen Soft, tenderness to the lower abdominal quadrants no evidence of peritonitis no skin changes noted Rectal - guiac positive Extremities No clubbing, No edema, Normal pulses, No tenderness, Strength = upper ext's, Strength = lower ext's Neurological Normal gait, Normal speech, Normal tone, Reflexes 2+ and equal, Cranial nerves intact, Strength 5/5 x4 ext's, No lateralizing signs Psych/Mental Status Mood normal LAB Results Laboratory Tests 08/07 08/07 0545 2360 Chemistry Plasma Sodium (136 - 145 mmol/L) 137 Plasma Potassium (3.5 - 5.1 mmol/L) 4.8 Plasma Chloride (98 - 107 mmol/L) 102 CO2 (Enzymatic) (21 - 32 mmol/L) 29 BUN (7 - 18 mg/dL) 11 Creatinine (0.6 - 1.3 mg/dL) 0.9 Est GFR ( Amer) (mL/min) >60 Est GFR (Non-Af Amer) (mL/min) >60 Glucose (70 - 110 mg/dL) 89 Plasma Calcium (8.5 - 10.1 mg/dL) 7.9 Total Bilirubin (0.0 - 1.0 mg/dL) 0.2 AST (15 - 37 U/L) 28 ALT (12 - 78 U/L) 17 Alkaline Phosphatase (46 - 116 U/L) 76 Total Protein (6.4 - 8.2 g/dL) 5.6 Albumin (3.3 - 5.0 g/dL) 1.8 Amylase (25 - 115 U/L) 48 Lipase (73 - 393 U/L) 270 Coagulation INR (0.8 - 1.2) 0.9 APTT (24 - 34 SECONDS) 33 Hematology WBC (4.5 - 11.5 K/uL) 21.9 RBC (4.50 - 5.90 M/uL) 3.82 Hgb (13.5 - 17.5 gm/dL) 10.4 Hct (41.0 - 53.0 %) 31.8 MCV (80 - 100 fL) 83 MCH (26 - 34 pg) 27 RDW (11.6 - 14.8 %) 14.7 Neut % (Auto) (50 - 75 %) 33 Lymph % (Auto) (25 - 40 %) 20 Flagler % (Auto) (3 - 14 %) 10 Eos % (Auto) (0 - 4 %) 3 Baso % (Auto) (0 - 2 %) 1 Band Neutrophils % (0 - 8 %) 31 Metamyelocytes % (0 - 1 %) 2 Myelocytes (0 - 1 %) 0 Other Cell Type 0 Plt Count, EDTA (150 - 400 K/uL) 554 Hypochromic-Microcytic 1+ Anisocytosis (manual) 1+ PUBS MCHC (31 - 37 g/dL) 33 Microbiology Date/Time Procedure - Status Source Growth 08/07 929 Clostridium difficile Toxin A & B - COMP STOOL 08/07 929 Specimen Source - COMP STOOL 08/07 929 Stool Leukocytes - COMP STOOL Assessment and Plan Problem List 1. Pancolitis Plan - pt has radiological evidence of colitis in the large intestine - given the presentation of diffuse complete swelling of the intestine inflammatory bowel disease more likely than infectious process - will provide abx- cipro and flagyl - surgery consult appreciated- will paln for scope when the bowel is less friable - will continue to monitor cbc - will keep pt npo 2. Anemia due to blood loss, acute Plan - secondary to inflammatory process in large intestine - patient reports losing 1/2 cup of blood every bowel movement - pts anemia not every severe despite frequent bleeding - will anticipate anemia to worsen with iv fluids given hemodilution - will cross and match 3. Leukocytosis Plan - secondary to infectious process - will c/w cipro and flagyl for time being 4. Abdominal pain Plan - secondary to bowel inflammation - will attempt to control pain as much as possible
[2016-08-07 14:28] VITALS: BP 92/57
--- NOTE | 2016-08-07 14:45 | NUR ---
PATIENT ARRIVED TO THE FLOOR. WALKED TO THE BED. UP INDP TO THE BATHROOM. HAVING LIQUID ORANGE/YELLOW SMALL FREQUENT STOOLS. A&OX3 & ABLE TO ANSWER ALL QUESTIONS AND COMPLETE ADMIT QUESTIONS. STARTED IV FLUIDS. GAVE PO ABX WITH SIPS. NPO OTHERWISE. VSS. SR ON TELE. PAIN 6/10 LOWER ABD. GAVE IV PRN MEDS. SLEEPING NOW IN BED. SCD TO BLE.
--- NOTE | 2016-08-07 18:43 | NUR ---
PATIENT COOPERATIVE WITH CARES, AMBULATING THE HALLS FREQUENTLY. SLEEPS IN BETWEEN AMBULATING HALLS AND HAS NO COMLAINTS OF PAIN SINCE BEING MEDICATED SHORTLY AFTER ARRIVING TO THE FLOOR. WCOBINNA
[2016-08-07 19:01] VITALS: BP 99/56
--- NOTE | 2016-08-07 22:00 | NUR ---
Patient has been walking around the [place]. Reports of RLQ abdominal pain and has been passing out watery, yellowish stools which has not been bloody so far. Continues to be NPO.
[2016-08-07 22:28] VITALS: BP 95/56
[2016-08-08 03:07] VITALS: BP 94/56
[2016-08-08 06:57] VITALS: BP 102/64
[2016-08-08 11:35] VITALS: BP 99/52
[2016-08-08 14:09] VITALS: BP 101/50
--- NOTE | 2016-08-08 15:20 | NUR ---
NO CHANGE IN PATIENT CONDITION. A&OX3.PAIN 7/10 AFTER BM AND 4/10 WHEN RESTING IN BED. STATES IT IS MANAGABLE. PATIENT UP IN HALLS THIS AFTERNOON. SHOWERED. NPO WITH SIPS FOR MEDS. SR ON TELE. VSS. LOOSE/LIQUID STOOL. BROWN WITH SOME BURGUNDY BLOOD. AWARE OF LABS.
--- NOTE | 2016-08-08 16:25 | Progress Note ---
Subjective General Patient seen and examined. Patient has had only one episode of bloody diarrhea overnight, but the degree of bleeding has decreased drastically. Patient has been having liquid stools however. Patients pain is well controlled and patient has no complaints at the moment. Constitutional Weakness, Malaise. Denies: Fever, Chills, Sweats, Other. Eyes Denies: Pain, Vision Change, Conjunctival Inflammation, Eyelid Inflammation, Redness, Other. ENT Denies: Ear Pain, Ear Discharge, Nose Pain, Nasal Discharge, Nasal Congestion, Mouth Pain, Mouth Swelling, Throat Pain, Throat Swelling, Other. Respiratory Denies: Cough, Dry, SOB w/exertion, Wheezing, Hemoptysis, Pleuritic Pain, Sputum , Other. Cardiovascular Denies: Chest Pain, Palpitations, Orthopnea, PND, Edema, Light-headedness, Other. Gastrointestinal Nausea, Abdominal Pain, Diarrhea, Melena. Denies: Vomiting, Constipation, Hematochezia. Genitourinary Denies: Dysuria, Frequency, Incontinence, Hematuria, Retention, Other. Musculoskeletal Denies: Neck Pain, Shoulder Pain, Arm Pain, Back Pain, Hand Pain, Leg Pain, Foot Pain, Other. Skin Denies: Rash, Lesions, Jaundice, Bruising, Other. Neurological Denies: Weakness, Numbness, Incoordination, Change in speech, Confusion, Seizures, Other. Physical Exam Vital Signs / I&Os Vital Signs Date Time Temp Pulse Resp B/P Pulse O2 O2 Flow FiO2 Ox Delivery Rate 08/08 1409 97.9 87 18 101/50 100 08/08 1135 98.2 90 16 99/52 97 Room Air 0.0 08/08 0657 98.1 84 16 102/64 97 Room Air 0.0 08/08 0307 98.1 86 16 94/56 97 Room Air 08/07 2228 98.1 80 20 95/56 95 Room Air 08/07 2200 Room Air 08/07 1901 98.4 81 20 99/56 97 Room Air I&O 08/07 0800 08/07 1600 08/08 0000 Intake Total 0 610 Output Total 200 900 Balance -200 -290 General Appearance Alert, Oriented X3, No acute distress HEENT Atraumatic, PERRLA, EOMI, Moist mucous membranes Lungs Clear to auscultation, Normal air movement Cardiovascular Regular rate and rhythm, No murmurs, gallops, rubs Abdomen Soft, - tenderness to lower quadrants as before - patient has more pronounced RLQ pain compared to L Extremities No edema, Normal pulses, No tenderness, Strength = upper ext's, Strength = lower ext's Skin No Breakdown, No Significant Lesions Neurological Normal speech, Normal tone, Cranial nerves intact, Strength 5/5 x4 ext's, No lateralizing signs Psych/Mental Status Mood normal LAB Results Laboratory Tests 08/08 0505 Chemistry Plasma Sodium (136 - 145 mmol/L) 138 Plasma Potassium (3.5 - 5.1 mmol/L) 4.0 Plasma Chloride (98 - 107 mmol/L) 104 CO2 (Enzymatic) (21 - 32 mmol/L) 25 BUN (7 - 18 mg/dL) 6 Creatinine (0.6 - 1.3 mg/dL) 0.7 Est GFR ( Amer) (mL/min) >60 Est GFR (Non-Af Amer) (mL/min) >60 Glucose (70 - 110 mg/dL) 80 Plasma Calcium (8.5 - 10.1 mg/dL) 8.0 Plasma Magnesium (1.8 - 2.4 mg/dL) 1.8 Total Bilirubin (0.0 - 1.0 mg/dL) 0.3 AST (15 - 37 U/L) 12 ALT (12 - 78 U/L) 14 Alkaline Phosphatase (46 - 116 U/L) 55 Total Protein (6.4 - 8.2 g/dL) 4.9 Albumin (3.3 - 5.0 g/dL) 1.6 Hematology WBC (4.5 - 11.5 K/uL) 19.4 RBC (4.50 - 5.90 M/uL) 3.77 Hgb (13.5 - 17.5 gm/dL) 10.1 Hct (41.0 - 53.0 %) 31.4 MCV (80 - 100 fL) 83 MCH (26 - 34 pg) 27 RDW (11.6 - 14.8 %) 14.6 Neut % (Auto) (50 - 75 %) 44 Lymph % (Auto) (25 - 40 %) 18 [place] % (Auto) (3 - 14 %) 7 Eos % (Auto) (0 - 4 %) 2 Baso % (Auto) (0 - 2 %) 1 Band Neutrophils % (0 - 8 %) 28 Metamyelocytes % (0 - 1 %) 0 Myelocytes (0 - 1 %) 0 Other Cell Type 0 Plt Count, EDTA (150 - 400 K/uL) 451 Hypochromic-Microcytic 2+ Anisocytosis (manual) 1+ PUBS MCHC (31 - 37 g/dL) 32 Assessment and Plan Problem List 1. Pancolitis Plan - pt has evidence of barrios colitis - current differentials are inlfammatory bowel disease vs infectious colitis - patient has been recieving cipro and flagyl - patient has decreased bleeding and pain - plans to have colonoscopy have been postponed due to the possibility of encountering extremely friable colon - will c/w antibioitcs, npo status and iv fluids 2. Anemia due to blood loss, acute Plan - pt has had bloody bowel movements for close to 3 weeks - pts bleeindg had significantly reduced 3. Abdominal pain Plan - secondary to inflammation - pain medicaiton is providing adequate relief - will continue to monitor
[2016-08-08 18:15] VITALS: BP 101/53
--- NOTE | 2016-08-08 20:03 | NUR ---
Patient reports 8/10 abdo pain. He was instructed to call staff whenever blood is seen in stools. He remains NPO and continues on IV fluids.
[2016-08-08 22:27] VITALS: BP 103/50
[2016-08-09] VITALS (7 sets, daily range): BP systolic 87–111; BP diastolic 47–63
--- NOTE | 2016-08-09 15:57 | NUR ---
200CC DARK BROWN LIQUID STOOL
--- NOTE | 2016-08-09 17:38 | Progress Note ---
Subjective General Patient seen and examined. Patient is still having diffuse diarrhea with occasional blood. Patient is not having much improvement in terms of abdominal pain, but the pain medication being provided is working well. Constitutional Denies: Fever, Chills, Sweats, Weakness, Malaise, Other. Eyes Denies: Pain, Vision Change, Conjunctival Inflammation, Eyelid Inflammation, Redness, Other. Respiratory Denies: Cough, Dry, SOB w/exertion, Wheezing, Hemoptysis, Pleuritic Pain, Sputum , Other. Cardiovascular Denies: Chest Pain, Palpitations, Orthopnea, PND, Edema, Light-headedness, Other. Gastrointestinal Nausea, Abdominal Pain, Diarrhea, Melena. Denies: Vomiting, Constipation, Hematochezia, Other. Genitourinary Denies: Dysuria, Frequency, Incontinence, Hematuria, Retention, Other. Musculoskeletal Denies: Neck Pain, Shoulder Pain, Arm Pain, Back Pain, Hand Pain, Leg Pain, Foot Pain, Other. Skin Denies: Rash, Lesions, Jaundice, Bruising, Other. Neurological Denies: Weakness, Numbness, Incoordination, Change in speech, Confusion, Seizures, Other. Physical Exam Vital Signs / I&Os Vital Signs Date Time Temp Pulse Resp B/P Pulse O2 O2 Flow FiO2 Ox Delivery Rate 08/09 1441 98.1 85 18 98/63 97 Room Air 08/09 1020 97.7 92 18 98/57 95 Room Air 08/09 0628 97.7 89 18 98/59 96 Room Air 08/09 0337 104/62 08/09 0233 98.1 89 18 87/47 95 Room Air 0.0 08/08 2227 98.4 87 18 103/50 97 Room Air 08/08 1957 Room Air 08/08 1815 98.4 84 18 101/53 98 I&O 08/08 0800 08/08 1600 08/09 0000 Intake Total 0 0 0 Output Total 500 1325 200 Balance -500 -1325 -200 General Appearance Alert, Oriented X3, No acute distress HEENT Atraumatic, EOMI, Moist mucous membranes Lungs Normal exam, Clear to auscultation, Normal air movement Neck Supple, No JVD, No thyromegaly Cardiovascular Regular rate and rhythm, No murmurs, gallops, rubs Abdomen Soft, No tenderness, No rebound, No masses Extremities No clubbing, No edema, Normal pulses, No tenderness, Strength = upper ext's, Strength = lower ext's Skin No Breakdown, No Significant Lesions Neurological Normal tone, Sensation intact, Cranial nerves intact, Strength 5/5 x4 ext's, No lateralizing signs LAB Results Laboratory Tests 08/09 0528 Chemistry Plasma Sodium (136 - 145 mmol/L) 135 Plasma Potassium (3.5 - 5.1 mmol/L) 4.2 Plasma Chloride (98 - 107 mmol/L) 102 CO2 (Enzymatic) (21 - 32 mmol/L) 21 BUN (7 - 18 mg/dL) 7 Creatinine (0.6 - 1.3 mg/dL) 0.8 Est GFR ( Amer) (mL/min) >60 Est GFR (Non-Af Amer) (mL/min) >60 Glucose (70 - 110 mg/dL) 61 Plasma Calcium (8.5 - 10.1 mg/dL) 8.2 Total Bilirubin (0.0 - 1.0 mg/dL) 0.3 AST (15 - 37 U/L) 12 ALT (12 - 78 U/L) 13 Alkaline Phosphatase (46 - 116 U/L) 58 Total Protein (6.4 - 8.2 g/dL) 4.4 Albumin (3.3 - 5.0 g/dL) 1.6 Hematology WBC (4.5 - 11.5 K/uL) 21.5 RBC (4.50 - 5.90 M/uL) 4.13 Hgb (13.5 - 17.5 gm/dL) 11.1 Hct (41.0 - 53.0 %) 34.7 MCV (80 - 100 fL) 84 MCH (26 - 34 pg) 27 RDW (11.6 - 14.8 %) 14.9 Neut % (Auto) (50 - 75 %) 80.1 Lymph % (Auto) (25 - 40 %) 10.6 [place] % (Auto) (3 - 14 %) 7.7 Eos % (Auto) (0 - 4 %) 1.3 Baso % (Auto) (0 - 2 %) 0.3 Plt Count, EDTA (150 - 400 K/uL) 505 PUBS MCHC (31 - 37 g/dL) 32 Assessment and Plan Problem List 1. Pancolitis Plan - will continue with antibiotics as prescribed - will no scope today given high likeleihood of friable bowel - c/w npo status and IV fluids - will continue to monitor 2. Anemia due to blood loss, acute Plan - stable no major blood loss noted - will continue to monitor daily 3. Abdominal pain Plan - stable, no major improvement - will c/w current pain medication regimen
[2016-08-10] VITALS (12 sets, daily range): BP systolic 94–127; BP diastolic 54–72
--- NOTE | 2016-08-10 05:11 | NUR ---
PT SLEPT WELL DURING THE NIGHT. NO BM DURING THE SHIFT. PT DID HAVE AN EPISODE OF VOMITING AND HAD 150ML OF WATERY GREEN EMESIS. ZOFRAN GIVEN WITH GOOD SUCCESS. VSS AND NO COMPLAINTS OF PAIN.
--- NOTE | 2016-08-10 16:00 | NUR ---
REPORT RECEIVED AND CARE ASSUMED AT 1547 PT EASILY AROUSABLE AND COMFORTABLE, RESTING ON HIS LEFT SIDE. VSS. PT NOW AWAKE AND CONVERSING.
--- NOTE | 2016-08-10 16:21 | NUR ---
PT AWAKE AND COMFORTABLE. DR MATA SPOKE WITH PT REGARDING EXAM FINDINGS AND FOLLOW-UP CARE. VSS.
--- NOTE | 2016-08-10 16:37 | NUR ---
BACK FROM OR. A/OX3 WITH NO C/O DISCOMFORT.
--- NOTE | 2016-08-10 16:54 | NUR ---
HAD A COLONOSCOPY TODAY AND TOLERATED IT WELL. RESTING QUIETLY AT THIS TIME WITH NO C/O DISCOMFORT.
--- NOTE | 2016-08-10 19:12 | OPERATIVE REPORT ---
DATE OF SURGERY: 08/10/2016 SURGEON: Clair Han III, MD MILK INSPECTOR: None. PREOPERATIVE DIAGNOSIS: 1. Colitis POSTOPERATIVE DIAGNOSIS: 1. Pancolitis consistent with ulcerative colitis/pseudo polyps PROCEDURE PERFORMED: 1. Colonoscopy with cecal, descending and sigmoid biopsies ANESTHESIA: TIVA. COMPLICATIONS: No intraoperative or anesthetic complications. INDICATIONS: The patient is a 46-year-old male admitted to [facility]. He presented to emergency department with 3-week history of abdominal pain and bright red blood per rectum. CT of his abdomen, moderate wall thickening of the entire colon and mild distention consistent with colitis. SURGICAL FINDINGS: Pancolitis with pseudopolyps of the descending and sigmoid colon, rectal vault appeared grossly normal. SURGICAL TECHNIQUE: The patient was brought to the operating room, placed in the left lateral decubitus position, where he was administered TIVA, monitored closely by anesthesia. After proper anesthesia had taken effect, digital rectal examination revealed no masses or stenosis. This was followed by the passage of fiberoptic video flexible Olympus colonoscope. The colon was irrigated as we proceeded, eventually identifying the cecum. Cecum was biopsied. The scope was withdrawn into the descending and sigmoid colon where multiple biopsies were obtained again with the aforementioned findings noted. The scope was withdrawn into the rectal vault, retroflexed, good view of the rectal vault obtained. No other pathology identified. The scope was completely withdrawn. The patient tolerated procedure well, was transferred to the recovery room in stable condition.
--- NOTE | 2016-08-10 19:12 | OPERATIVE REPORT ---
DATE OF SURGERY: 08/10/2016 SURGEON: Clair Han III, MD HRIS SPECIALIST: None. PREOPERATIVE DIAGNOSIS: 1. Colitis POSTOPERATIVE DIAGNOSIS: 1. Pancolitis consistent with ulcerative colitis/pseudo polyps PROCEDURE PERFORMED: 1. Colonoscopy with cecal, descending and sigmoid biopsies ANESTHESIA: TIVA. COMPLICATIONS: No intraoperative or anesthetic complications. INDICATIONS: The patient is a 46-year-old male admitted to [facility]. He presented to emergency department with 3-week history of abdominal pain and bright red blood per rectum. CT of his abdomen, moderate wall thickening of the entire colon and mild distention consistent with colitis. SURGICAL FINDINGS: Pancolitis with pseudopolyps of the descending and sigmoid colon, rectal vault appeared grossly normal. SURGICAL TECHNIQUE: The patient was brought to the operating room, placed in the left lateral decubitus position, where he was administered TIVA, monitored closely by anesthesia. After proper anesthesia had taken effect, digital rectal examination revealed no masses or stenosis. This was followed by the passage of fiberoptic video flexible Olympus colonoscope. The colon was irrigated as we proceeded, eventually identifying the cecum. Cecum was biopsied. The scope was withdrawn into the descending and sigmoid colon where multiple biopsies were obtained again with the aforementioned findings noted. The scope was withdrawn into the rectal vault, retroflexed, good view of the rectal vault obtained. No other pathology identified. The scope was completely withdrawn. The patient tolerated procedure well, was transferred to the recovery room in stable condition.
[2016-08-11] VITALS (11 sets, daily range): BP systolic 82–105; BP diastolic 45–70
--- NOTE | 2016-08-11 06:55 | Progress Note ---
Subjective General Aba Hung Note Date: August 11, 2016 Admission Date: August 07, 2016 Hospital Day: 5 PCP: None Status: Inpatient Advanced Directive: Full Code Room: 202 Brief History: The patient is a 46-year-old white male with no significant past medical history who presented to [facility] emergency department on the day of admission secondary to complaints of abdominal pain and hematochezia. [facility] ER evaluation was consistent with lower GI bleeding. Secondary to the above, the patient was admitted for further evaluation and treatment by Jose C Godoy M.D. with surgical consultation by Gonzalo Han M.D. For other history present illness, past medical history, family history, social history, review of systems, and admission physical examination please see the patient's history and physical examination and ER visit note in the patient's medical record. Subjective: The patient states he has persistent mildly loose stools with blood present. Symptoms improved. Pain improved Patient requests: None Medications and Allergies Medications Current Medications Sig/Vinicio Start time Last Medication Dose Route Stop Time Status Admin Metronidazole 500 MG Q8HR 08/08 1400 AC 08/11 PO 0633 Acetaminophen 650 MG Q6H PRN 08/07 1345 AC PO Ondansetron HCl 4 MG Q6H PRN 08/07 1345 AC 08/09 IV 2210 Sodium Chloride 1,000 ML ASDIRECTED 08/07 1345 AC 08/11 IV 0205 Hydromorphone HCl 1 MG Q4H PRN 08/07 1245 AC 08/09 IV 1603 Hydromorphone HCl 2 MG Q4H PRN 08/07 1245 AC IV Ciprofloxacin 500 MG BID 08/07 1230 AC 08/10 PO 2133 Dextrose/Sodium 1,000 ML ASDIRECTED 08/07 1000 AC 08/07 Chloride IV 1232 Allergies Coded Allergies: Penicillins (Severe, Anaphylaxis 08/07/16) Physical Exam Vital Signs / I&Os Vital Signs Date Time Temp Pulse Resp B/P Pulse O2 O2 Flow FiO2 Ox Delivery Rate 08/11 0245 92 92/58 99 08/11 0244 80 86/57 99 08/11 0242 76 90/55 97 08/11 0214 97.5 83 16 82/45 97 Room Air 08/10 2237 98.1 78 20 99/60 96 Room Air 08/10 2030 Room Air 08/10 1830 90 16 105/62 98 Room Air 08/10 1800 98.2 86 15 108/72 99 Room Air 08/10 1730 95 16 102/63 99 Room Air 08/10 1715 83 16 100/56 99 Room Air 08/10 1705 81 16 97/54 98 Room Air 08/10 1650 74 16 94/62 98 Room Air 08/10 1634 97.9 79 17 106/67 100 Room Air 08/10 1615 97.3 82 17 103/54 100 08/10 1610 84 12 100/64 100 08/10 1605 80 13 104/75 99 Nasal 2.0 Cannula 08/10 1600 86 14 105/62 98 Nasal 2.0 Cannula 08/10 1555 94 16 90/63 98 Nasal 2.0 Cannula 08/10 1550 96 15 104/48 97 Nasal 2.0 Cannula 08/10 1545 94 14 97/58 97 Nasal 3.0 Cannula 08/10 1544 96.6 93 14 97/58 98 Nasal 3.0 Cannula 08/10 1447 98.1 86 17 105/64 97 Room Air 08/10 1024 98.2 92 18 126/65 97 Room Air I&O 08/11 0000 08/10 1600 08/10 0800 Intake Total 720 366 2431 Output Total 300 300 750 Balance 645 679 258 General Appearance Alert, Oriented X3, Cooperative, No acute distress Lungs Clear to auscultation, Normal air movement Cardiovascular Regular rate and rhythm, Normal S1 and S2 Abdomen Normal bowel sounds, Soft, minimal diffuse tenderness Extremities No cyanosis, No clubbing, No edema Neurological Grossly normal Psych/Mental Status Mental status normal, Mood normal LAB Results Laboratory Tests 08/11 08/11 0549 0250 Chemistry Plasma Sodium (136 - 145 mmol/L) 139 Plasma Potassium (3.5 - 5.1 mmol/L) 3.8 Plasma Chloride (98 - 107 mmol/L) 108 CO2 (Enzymatic) (21 - 32 mmol/L) 27 BUN (7 - 18 mg/dL) 3 Creatinine (0.6 - 1.3 mg/dL) 0.8 Est GFR ( Amer) (mL/min) >60 Est GFR (Non-Af Amer) (mL/min) >60 Glucose (70 - 110 mg/dL) 112 Plasma Calcium (8.5 - 10.1 mg/dL) 7.6 Total Bilirubin (0.0 - 1.0 mg/dL) 0.1 AST (15 - 37 U/L) 9 ALT (12 - 78 U/L) 10 Alkaline Phosphatase (46 - 116 U/L) 47 Total Protein (6.4 - 8.2 g/dL) 4.2 Albumin (3.3 - 5.0 g/dL) 1.4 Hematology WBC (4.5 - 11.5 K/uL) 15.4 RBC (4.50 - 5.90 M/uL) 3.56 Hgb (13.5 - 17.5 gm/dL) 9.7 9.4 Hct (41.0 - 53.0 %) 29.7 29.1 MCV (80 - 100 fL) 84 MCH (26 - 34 pg) 27 RDW (11.6 - 14.8 %) 14.9 Neut % (Auto) (50 - 75 %) 77.2 Lymph % (Auto) (25 - 40 %) 13.9 [place] % (Auto) (3 - 14 %) 7.5 Eos % (Auto) (0 - 4 %) 1.0 Baso % (Auto) (0 - 2 %) 0.4 Plt Count, EDTA (150 - 400 K/uL) 556 PUBS MCHC (31 - 37 g/dL) 33 Assessment and Plan Problem List 1. Pancolitis Plan -Patient with findings of ulcerative colitis on colonoscopy -Await final biopsy results -Asacol 1600 mg by mouth 3 times a day -Prednisone 40 mg by mouth daily -Monitor -Possible discharge in 1-2 days with improved status 2. Anemia due to blood loss, acute Plan -Patient with mild anemia -H&H stable at 9.7/29.7 -WBC improved -Monitor 3. Abdominal pain Plan -Improved -Treatment as noted above Current status: Fair, improved Anticipated discharge date: Anticipated discharge 1-2 days Anticipated discharge placement: Home Patient care time: Time spent in chart review, patient interview, physical exam, CPOE, and care documentation: 25 minutes Visit to patient today: 2 Complexity of care: Moderate E&M Codes Rounding: Inpt-Moderate/[id number]
--- NOTE | 2016-08-11 13:16 | NUR ---
NUTRITION ASSESSMENT: Pt with dx/o blood in stool and abdominal pain. Pt s/p colonoscopy with cecal and sigmoid biopsies and dx/o ulcerative colitis w/pseudo polyps. Pt started on clear liquids last noc for dinner and taking ~75-100% Diet Rx: Clear liquids NKFA wts: 67.8 kg Ht: 68" IBW: 68-77 kg BMI: 22.9 %IBW: ~94% Est Kcals: ~7381-5487 kcals per day Est Pro: ~ 75-90 g per day Est Fluids: ~2.1 mls per day Meds Incl: ciprofloxacin, D5W at 125 mls per hour, mesalamine, prednisone, see eMar for complete list/details. Labs incl: (08/11) glucose 112, BUN 3, Creat 0.8, Na+ 139, K+ 3.8, Ca+ 7.6, total pro 4.2, albumin 1.4, HCT 29.7, HGB 9.7, MCH 27, MCV 84 Adjusted Calcium: 9.68 Skin: Trent Score 20, no open areas noted or reported. A: Pt appears to be tolerating clear liquids, anticipate diet advancement soon. Pt started on prednisone, rec monitor glucose, per MD will check fasting in the am. Albumin appears to be low, question if related to inflammation, stress, etc. May want to consider prealbumin lab? Rec BOOST Breeze Juice bid between meals to help optimize kcal and protein intake. RD to follow up prn/protocol. P: 1. Boost Breeze Juice BID 2. Consider prealbumin lab? 3. Advance diet when medically appropriate.
--- NOTE | 2016-08-11 13:40 | NUR ---
I discussed with the patient their current medications, possible side effects, and answered questions.
--- NOTE | 2016-08-11 18:33 | NUR ---
PATIENT SITTING UP IN BED, IV BOLUS RUNNING. DENIED ABD PAIN, SOB, NAUSEA OR CP. PT IS VERY PALE AND TIRED DUE TO FREQUENT RUNS TO THE BATHROOM FOR DIARRHEA. NO DIARRHEA THIS SHIFT THUS FAR. VSS. ABD SOUNDS HYPERACTIVE ON LEFT SIDE AND HYPOACTIVE ON RIGHT SIDE. CHANGED IV AROUND 1620, ON SECOND ATTEMPT, BECAUSE PT ACCIDENTLY PULLED IT OUT. PT IS AMBULATING IN [facility]. REQUESTS MORE SOLID FOODS AND WILL PASS ON TO . [facility].
--- NOTE | 2016-08-11 21:16 | NUR ---
PT CONTINUES TO IMPROVE, COLOR IS RETURNING TO FACE, NO ABD PAIN OR NAUSEA. NO DIARRHEA DURING THIS SHIFT. PT STATES DIFFICULTY SWALLOWING MEDS, NO CHOKING, STATES "GAG REFLEX" WHEN TAKING LARGER PILLS. WCTM. PT IS AMBULATING IN [facility]ALLWAY WITHOUT ISSUE.
[2016-08-12 01:47] VITALS: BP 105/53
--- NOTE | 2016-08-12 01:53 | NUR ---
Pt. is resting in bed at this time. Denies pain, nausea, or diarrhea. BP 105/55, WCTM. Pt. denies dizziness. Pt. on a clear liquid diet, tolerating well. Call light within reach. WCTM.
[2016-08-12 06:58] VITALS: BP 107/61
--- NOTE | 2016-08-12 07:24 | Progress Note ---
Subjective General Note Date: August 12, 2016 Admission Date: August 07, 2016 Hospital Day: 6 PCP: None Status: Inpatient Advanced Directive: Full Code Room: 202 Brief History: The patient is a 46-year-old white male with no significant past medical history who presented to [facility] emergency department on the day of admission secondary to complaints of abdominal pain and hematochezia. [facility] ER evaluation was consistent with lower GI bleeding. Secondary to the above, the patient was admitted for further evaluation and treatment by Jose C Godoy M.D. with surgical consultation by Gonzalo Han M.D. For other history present illness, past medical history, family history, social history, review of systems, and admission physical examination please see the patient's history and physical examination and ER visit note in the patient's medical record. Subjective: Improved. Ready for discharge Patient requests: None Medications and Allergies Medications Current Medications Sig/Vinicio Start time Last Medication Dose Route Stop Time Status Admin Potassium Chloride/ 200 ML NOW STA 08/12 0721 UNV Water IV 08/12 1120 Mesalamine 1,600 MG TID 08/11 1000 AC 08/12 PO 0508 Prednisone 40 MG DAILY 08/11 1000 AC 08/11 PO 1111 Metronidazole 500 MG Q8HR 08/08 1400 AC 08/12 PO 0508 Acetaminophen 650 MG Q6H PRN 08/07 1345 AC PO Ondansetron HCl 4 MG Q6H PRN 08/07 1345 AC 08/09 IV 2210 Sodium Chloride 1,000 ML ASDIRECTED 08/07 1345 AC 08/11 IV 1220 Hydromorphone HCl 1 MG Q4H PRN 08/07 1245 AC 08/09 IV 1603 Hydromorphone HCl 2 MG Q4H PRN 08/07 1245 AC IV Ciprofloxacin 500 MG BID 08/07 1230 AC 08/11 PO 2114 Dextrose/Sodium 1,000 ML ASDIRECTED 08/07 1000 AC 08/12 Chloride IV 0430 Allergies Coded Allergies: Penicillins (Severe, Anaphylaxis 08/07/16) Physical Exam Vital Signs / I&Os Vital Signs Date Time Temp Pulse Resp B/P Pulse O2 O2 Flow FiO2 Ox Delivery Rate 08/12 0658 97.5 66 18 107/61 100 Room Air 0.0 08/12 0147 97.7 71 18 105/53 96 Room Air 08/11 2215 98.2 75 18 105/70 97 Room Air 08/11 1811 98.1 94 18 90/56 98 Room Air 08/11 1540 Room Air 08/11 1535 96/52 08/11 1439 98.2 84 20 86/55 96 Room Air 08/11 1019 97.9 96 18 97/64 97 Room Air 08/11 0800 Room Air I&O 08/12 0000 08/11 1600 08/11 0800 Intake Total 2399 1806 1722 Output Total 700 400 Balance 2399 1106 1322 General Appearance Alert, Oriented X3, Cooperative, No acute distress Lungs Clear to auscultation Cardiovascular Regular rate and rhythm, Normal S1 and S2 Abdomen Normal bowel sounds, Soft, No tenderness Extremities No cyanosis, No clubbing Neurological Cranial nerves intact, No lateralizing signs Psych/Mental Status Mental status normal, Mood normal LAB Results Laboratory Tests 08/12 0630 Chemistry Plasma Sodium (136 - 145 mmol/L) 140 Plasma Potassium (3.5 - 5.1 mmol/L) 3.1 Plasma Chloride (98 - 107 mmol/L) 107 CO2 (Enzymatic) (21 - 32 mmol/L) 25 BUN (7 - 18 mg/dL) 1 Creatinine (0.6 - 1.3 mg/dL) 0.7 Est GFR ( Amer) (mL/min) >60 Est GFR (Non-Af Amer) (mL/min) >60 Glucose (70 - 110 mg/dL) 143 Plasma Calcium (8.5 - 10.1 mg/dL) 7.5 Hematology WBC (4.5 - 11.5 K/uL) 15.6 RBC (4.50 - 5.90 M/uL) 3.31 Hgb (13.5 - 17.5 gm/dL) 8.9 Hct (41.0 - 53.0 %) 27.5 MCV (80 - 100 fL) 83 MCH (26 - 34 pg) 27 RDW (11.6 - 14.8 %) 15.2 Neut % (Auto) (50 - 75 %) Pending Lymph % (Auto) (25 - 40 %) Pending [place] % (Auto) (3 - 14 %) Pending Band Neutrophils % (0 - 8 %) Pending Plt Count, EDTA (150 - 400 K/uL) 474 PUBS MCHC (31 - 37 g/dL) 32 Assessment and Plan Problem List 1. Colitis Status Acute Onset Date Unknown Plan -improved -Plan discharge today -Outpatient follow-up with PCP -Continue present therapy 2. Anemia due to blood loss, acute Plan -stable -Outpatient follow-up 3. Hypokalemia Status Acute Onset Date 08/12/16 Plan -Patient with findings of mild hypokalemia -Potassium 3.1 today -Potassium 40 mEq IV -By mouth supplementation -Monitor 4. Leukocytosis Plan -improved -Outpatient follow-up Current status: Fair, improved Anticipated discharge date: Anticipated discharge this p.m. or in a.m. Anticipated discharge placement: Home Patient care time: Time spent in chart review, patient interview, physical exam, CPOE, and care documentation: greater than 30 minutes Visit to patient today: 2 Complexity of care: Moderate E&M Codes Discharge: Inpt >30 min spent/[id number]
[2016-08-12 09:56] VITALS: BP 109/68
--- NOTE | 2016-08-12 10:46 | NUR ---
NOTIFIED PHARMACY YESTERDAY A.M. OF TWO ORDERS FOR IV FLUIDS AND TO UPDATE TO NS, MOST CURRENT ORDER. NOC SHIFT [place] IV ORDER WITH D51/2 NS, NOTIFIED DR. ELLISON, HE STATES THAT IS FINE AND NO ADVERSE EFFECTS TO BE EXPECTED. ORDERS TO SALINE LOCK IV NOW. WILL SALINE LOCK AFTER POTASSIUM FINISHES INFUSING. WCTM
[2016-08-12 14:13] VITALS: BP 100/65
[2016-08-12] MEDS ORDERED: ASACOL HD800 MG PO ×2 (14:57→15:03)
[2016-08-12] MEDS ORDERED: METRONIDAZOLE500 MG PO (14:57)
[2016-08-12] MEDS ORDERED: CIPROFLOXACIN500 M1 PO (14:57)
[2016-08-12] MEDS ORDERED: PREDNISONE20 MG PO ×2 (14:58→15:00)
[2016-08-12] MEDS ORDERED: MAPAP325 MG PO (15:00)
[2016-08-12] MEDS ORDERED: KLOR-CON M2020 MEQ PO (15:57)
--- NOTE | 2016-08-12 15:57 | Provider's Discharge Care Plan ---
Problem, Goal, Plan Problem List 1. Colitis Goals: Improve disease control, Prevent disease progress Instructions: Follow up as directed, Take meds as directed 2. Hypokalemia Goals: Improve disease control, Prevent disease progress Instructions: Follow up as directed, Take meds as directed 3. Anemia Goals: Improve disease control, Prevent disease progress Instructions: Follow up as directed, Take meds as directed, Follow up with your physician to have your blood count rechecked in one week.
--- NOTE | 2016-08-12 16:14 | Discharge Summary ---
Discharge Summary Report Admit Date 08/07/16 Discharge Date 08/12/16 Admission Diagnosis 1. Colitis Discharge Diagnosis 1. Colitis 2. Anemia 3. Hypokalemia Brief History The patient is a 46-year-old white male with no significant past medical history who presented to [facility] emergency department on the day of admission secondary to complaints of abdominal pain and hematochezia. [facility] ER evaluation was consistent with lower GI bleeding. Secondary to the above, the patient was admitted for further evaluation and treatment by Jose C Godoy M.D. with surgical consultation by Gonzalo Han M.D. For other history present illness, past medical history, family history, social history, review of systems, and admission physical examination please see the patient's history and physical examination and ER visit note in the patient's medical record. Hospital Course The following problems and their management were noted during the patient's hospitalization: 1. Colitis The patient was admitted with findings of colitis. He experienced bloody diarrhea which improved during his hospitalization. Colonoscopy was consistent with ulcerative colitis. Biopsy results pending at discharge. The patient was treated with prednisone 40 mg by mouth daily and Asacol 1600 mg by mouth 3 times a day. Symptoms were much improved at discharge. He will follow-up with his PCP next week. See discharge instructions 2. Anemia The patient experienced mild anemia associated with colitis. This was stable at discharge. Outpatient follow-up with PCP. Discharge H&H 8.9/27.5. 3. Hypokalemia The patient experienced mild hypokalemia. He was discharged on potassium supplementation KCl 20 mEq by mouth daily. General Appearance Alert, Oriented X3, Cooperative, No acute distress Lungs Clear to auscultation, Normal air movement Cardiovascular Regular Rate, Normal S1, Normal S2 Abdomen Normal bowel sounds, Soft, No tenderness Neurological Strength at 5/5 X4 ext, Cranial nerves 3-12 NL Psych/Mental Status Mental status NL, Mood NL Discharge Instructions/Meds For other recommendations regarding discharge diet, activity, follow-up, and discharge medications please see the patient's discharge instructions. Discharge condition: Fair, improved-stable Greater than 30 minutes was spent in the patient's discharge preparation The patient was interviewed and examined on the day of discharge. E&M Codes Discharge: Inpt >30 min spent/[id number]
--- NOTE | 2016-08-12 16:14 | Discharge Summary ---
Discharge Summary Report Admit Date 08/07/16 Discharge Date 08/12/16 Admission Diagnosis 1. Colitis Discharge Diagnosis 1. Colitis 2. Anemia 3. Hypokalemia Brief History The patient is a 46-year-old white male with no significant past medical history who presented to [facility] emergency department on the day of admission secondary to complaints of abdominal pain and hematochezia. [facility] ER evaluation was consistent with lower GI bleeding. Secondary to the above, the patient was admitted for further evaluation and treatment by Jose C Godoy M.D. with surgical consultation by Gonzalo Han M.D. For other history present illness, past medical history, family history, social history, review of systems, and admission physical examination please see the patient's history and physical examination and ER visit note in the patient's medical record. Hospital Course The following problems and their management were noted during the patient's hospitalization: 1. Colitis The patient was admitted with findings of colitis. He experienced bloody diarrhea which improved during his hospitalization. Colonoscopy was consistent with ulcerative colitis. Biopsy results pending at discharge. The patient was treated with prednisone 40 mg by mouth daily and Asacol 1600 mg by mouth 3 times a day. Symptoms were much improved at discharge. He will follow-up with his PCP next week. See discharge instructions 2. Anemia The patient experienced mild anemia associated with colitis. This was stable at discharge. Outpatient follow-up with PCP. Discharge H&H 8.9/27.5. 3. Hypokalemia The patient experienced mild hypokalemia. He was discharged on potassium supplementation KCl 20 mEq by mouth daily. General Appearance Alert, Oriented X3, Cooperative, No acute distress Lungs Clear to auscultation, Normal air movement Cardiovascular Regular Rate, Normal S1, Normal S2 Abdomen Normal bowel sounds, Soft, No tenderness Neurological Strength at 5/5 X4 ext, Cranial nerves 3-12 NL Psych/Mental Status Mental status NL, Mood NL Discharge Instructions/Meds For other recommendations regarding discharge diet, activity, follow-up, and discharge medications please see the patient's discharge instructions. Discharge condition: Fair, improved-stable Greater than 30 minutes was spent in the patient's discharge preparation The patient was interviewed and examined on the day of discharge. E&M Codes Discharge: Inpt >30 min spent/[id number]
--- NOTE | 2016-08-12 16:28 | NUR ---
NUTRITION NOTE: Pt eating ~100% general diet asking for 2nds. Gave pt written and verbal info on low fiber diet for ulcerative colitis if pt where to have a flare up in the future. Pt appears to understand info given today. RD to follow up prn/protocol.
--- NOTE | 2016-08-12 19:44 | NUR ---
PT. DC'D HOME AT APPROXIMATELY 1825 - IV DC'D, GIVEN SIGNED RX AND ALL DC INFORMATION AND PACKET, HAS ALL PERSONAL BELONGINGS AND WAS ESCORTED OUT BY [employer].
== END 2016-08-12 18:25 | disposition home or self-care (01) | DRG 245 ==
LOC: ED SRH 05:34 → TRANS SRH 08:49 → ACUTE2 SRH 09:49 → TRANS SRH 12:13 → ACUTE2 SRH 08-12 18:25
PROVIDERS: Specialist; ADMIT Student in an Organized Health Care Education/Training Program
PROC: 0DBN8ZX Excision of Sigmoid Colon, Via Natural or Artificial Opening Endoscopic, Diagnostic (ICD-10-PCS; principal; 2016-08-10 13:45)
PROC: 0DBH8ZX Excision of Cecum, Via Natural or Artificial Opening Endoscopic, Diagnostic (ICD-10-PCS; principal; 2016-08-10 13:45)
DX: K51.011 Ulcerative (chronic) pancolitis with rectal bleeding (principal); D12.4 Benign neoplasm of descending colon; D12.5 Benign neoplasm of sigmoid colon; K51.411 Inflammatory polyps of colon with rectal bleeding; D62 Acute posthemorrhagic anemia; E87.6 Hypokalemia; F17.210 Nicotine dependence, cigarettes, uncomplicated
CPT/HCPCS: 50004; 60001; 82944; 83526; 90001; 90047; 90074; 90100; 90112; 90155; 91004; 91162; 91163; 91295; 91643; 92235; 92530; 92720; 94001; 94060; 95059; 95061; 99262